=== PATIENT | male | born 1930 | race Caucasian/White ===

== ENCOUNTER 2018-08-01 17:54 | Emergency (ER) | payer OTHER, MEDICARE ==
[~2018-08-01 17:54] MED LIST: PERCOCET 5-3251 EACH PO
--- NOTE | 2018-08-01 20:05 | RADIOLOGY REPORT ---
EXAMINATION: XR HAND, LEFT CLINICAL INFORMATION: Laceration COMPARISON: None TECHNIQUE: PA, lateral, and oblique views of the left hand. FINDINGS: Gauze bandaging in circles the wrist. There are punctate radiodensities seen scattered within the mid hand along the palmar aspect and lateral aspect, lateral to the fifth metacarpal bone. There is also a larger hyperdensity seen along the lateral aspect of the distal radial diaphysis within the soft tissues at the volar side. This measures approximately 0.2 cm and is quite dense. Advanced degenerative changes are identified predominantly involving the first ray at the metacarpophalangeal joint, interphalangeal joint and carpometacarpal joint characterized by joint space narrowing and hypertrophic osteophyte arthropathy. Diffuse degenerative changes are seen throughout the interphalangeal joints of the fingers. No radiographic evidence of acute displaced fracture. IMPRESSION: Scattered punctate radiodensities are seen within the soft tissues of the hand at the level of the metacarpal bones, predominantly along the palmar aspect. There is an additional larger 0.2-0.3 cm radiodensity within the volar aspect of the forearm at the level of the distal radial diaphysis. Clinical correlation for foreign body is recommended. Radiographic evidence of acute displaced fracture. Degenerative changes of the hand as detailed above, predominantly involving the thumb. The report will be called to the ordering clinician by a [facility] Workflow Coordinator.
--- NOTE | 2018-08-01 21:49 | ED GENERAL ADULT ---
History of Present Illness General Chief Complaint: Laceration Procedure Stated Complaint: L HAND +LAC, NOT UTD ON TETANUS Source: patient Exam Limitations: no limitations Vital Signs & Intake/Output Vital Signs & Intake/Output Vital Signs Date Time Temp Pulse Resp B/P B/P Pulse O2 O2 Flow FiO2 Mean Ox Delivery Rate 08/01 2155 98.0 60 18 144/65 98 Room Air 08/01 1816 97 Room Air 08/01 1801 98.0 100 18 154/93 96 Room Air Room Air Allergies Coded Allergies: No Known Allergies (08/01/18) Reconcile Medications Oxycodone HCl/Acetaminophen (Percocet 5-325 MG Tablet) 5 MG-325 MG TABLET 1 TAB PO BID PRN PAIN DO NOT OPERATE MOTOR VEHICLES WITH THIS MEDICATION Triage Note: TRIAGE: 88 Y/O MALE PRESENTS C/O LAC TO LEFT DORSAL SURFACE OF HAND. REPORTS OCCURRED 1 HOUR PRIOR TO ARRIVAL. BLEEDING APPEARS MODERATELY CONTROLLED. DRESSING CHANGED IN TRIAGE. LAST TETANUS 10-15 YEARS AGO. Triage Nurses Notes Reviewed? yes Onset: Abrupt Duration: hour(s): Timing: single episode today HPI: 88-year-old male with a history of hyperlipidemia, renal stones, osteoporosis presenting with left hand laceration sustained approximately 1 hour prior to arrival. Patient reports that him and his are currently in the process of moving. He was moving some items with a hand truck when he accidentally cut himself on the hand truck. Denies numbness or paresthesias. Last tetanus 10-15 years ago. (Ursula Silva) Past History Travel History Traveled to [place] past 21 day No Medical History Any Pertinent Medical History? see below for history Neurological: NONE EENT: NONE Cardiovascular: hyperlipidemia Gastrointestinal: NONE Hepatic: NONE Renal: KIDNEY STONES Musculoskeletal: chronic back pain, osteoporosis Psychiatric: NONE Endocrine: NONE Blood Disorders: NONE Cancer(s): prostate cancer Tetanus Vaccine: 08/01/18 Surgical History Surgical History: non-contributory Psychosocial History What is your primary language Mexican Tobacco Use: Refused to answer ETOH Use: denies use Illicit Drug Use: denies illicit drug use Family History Hx Contributory? No (Ursula Silva) Review of Systems Review of Systems Constitutional: Reports: no symptoms. EENTM: Reports: no symptoms. Respiratory: Reports: no symptoms. Cardiovascular: Reports: no symptoms. GI: Reports: no symptoms. Genitourinary: Reports: no symptoms. Musculoskeletal: Reports: no symptoms. Skin: Reports: see HPI. Neurological/Psychological: Reports: no symptoms. Hematologic/Endocrine: Reports: no symptoms. Immunologic/Allergic: Reports: no symptoms. All Other Systems: Reviewed and Negative (Ursula Silva) Physical Exam Physical Exam General Appearance: well developed/nourished, no apparent distress, alert, awake Comments: Gen.: Well-nourished, well-developed, no acute distress. Head: Normocephalic, atraumatic. Eyes: Normal inspection bilaterally Ears: Normal inspection bilaterally Nose: Normal inspection Neck: Normal inspection Lungs: clear to auscultation bilaterally, normnal breath sounds Heart: regular rate and rhythm Abdomen: soft and non-tender HAND: Left hand Inspection: Approximately 2 inch curved laceration to the dorsum of the left hand Palpation: Tender palpation along the wound edges ROM: Unrestricted range of motion at all MCPs/PIPs/DIPs and IP joint Sensation: intact to median/radial/ulnar nerves Motor strength: 5/5 with digit flexion, extension, interosseous strength, and hand director dietetics department strength Cap refill: <2 seconds Pulse: 2+ radial pulse Neurologic: alert and oriented x3, steady gait Skin: warm and dry Psychiatric: Normal mood and affect, no apparent delusions or hallucinations, behavior appropriate Core Measures ACS in differential dx? No CVA/TIA Diagnosis: No Sepsis Present: No Sepsis Focused Exam Completed? No (Ursula Silva) Progress Differential Diagnoses I considered the following diagnoses in my evaluation of the patient: [ Laceration versus foreign body versus fracture, will concern for tendon injury versus nerve injury versus vascular injury] Plan of Care: XRFINDINGS: Gauze bandaging in circles the wrist. There are punctate radiodensities seen scattered within the mid hand along the palmar aspect and lateral aspect, lateral to the fifth metacarpal bone. There is also a larger hyperdensity seen along the lateral aspect of the distal radial diaphysis within the soft tissues at the volar side. This measures approximately 0.2 cm and is quite dense. Advanced degenerative changes are identified predominantly involving the first ray at the metacarpophalangeal joint, interphalangeal joint and carpometacarpal joint characterized by joint space narrowing and hypertrophic osteophyte arthropathy. Diffuse degenerative changes are seen throughout the interphalangeal joints of the fingers. No radiographic evidence of acute displaced fracture. IMPRESSION: Scattered punctate radiodensities are seen within the soft tissues of the hand at the level of the metacarpal bones, predominantly along the palmar aspect. There is an additional larger 0.2-0.3 cm radiodensity within the volar aspect of the forearm at the level of the distal radial diaphysis. Clinical correlation for foreign body is recommended. Radiographic evidence of acute displaced fracture. Degenerative changes of the hand as detailed above, predominantly involving the thumb. Clarified with [facility] that there is NO acute fracture. The wound was extensively irrigated to remove any microscopic foreign bodies, there were no visible foreign bodies. Wound repaired as described in the procedure note. Tetanus updated. Counseled on wound care and strict return precautions. Initial ED EKG: none (Ursula Silva) Departure Departure Disposition: HOME OR SELF CARE Condition: Stable Clinical Impression Primary Impression: Hand laceration Referrals: Nguyễn Marques MD (PCP/Family) Additional Instructions: Keep the wound clean and dry. Return to the emergency department on August 10 between 3pm-1am for suture removal. Return to the emergency department for any new or worsening symptoms. Follow-up with your primary care provider for reevaluation. Departure Forms: Customer Survey General Discharge Information (Ursula Silva) PA/VENEER GLUE JOINTER FEEDBACK Co-Sign Statement Statement: ED Attending supervision documentation- [] I saw and evaluated the patient. I have also reviewed all the pertinent lab results and diagnostic results. I agree with the findings and the plan of care as documented in the PA's/VENEER GLUE JOINTER FEEDBACK's documentation. [x] I have reviewed the ED Record and agree with the PA's/VENEER GLUE JOINTER FEEDBACK's documentation. [] Additions or exceptions (if any) to the PAs/VENEER GLUE JOINTER FEEDBACK's note and plan are summarized below: [] (Linda OWEN,Chase Roth) Procedures Laceration/Wound Repair Laceration/Wound Repair: Wound Location: upper extremity (left hand) Wound's Depth, Shape: other (curved) Wound Length (cm): 6 Wound Explored: clean, no foreign body removed Irrigated w/ Saline (ccs): 240 Betadine Prep? Yes Anesthesia: 1% lidocaine Wound Repaired With: sutures Suture Size/Type: 6:0, nylon, continuous running stitch with 1 simple interupted Date of Last Tetanus: 08/01/18 (Ursula Silva) Critical Care Note Critical Care Note Critical Care Time: non-applicable (Ursula Silva)
[2018-08-01 21:55] VITALS: BP 144/65
== END 2018-08-01 22:02 ==
LOC: ERH 17:54
DX: S61.412A Laceration without foreign body of left hand, initial encounter (principal); W45.8XXA Other foreign body or object entering through skin, initial encounter; Y93.E6 Activity, residential relocation
CPT/HCPCS: 73130-LT; 90471

== ENCOUNTER 2018-08-02 20:41 | Inpatient (IN) | payer OTHER, MEDICARE ==
[~2018-08-02] VITALS: Ht 162.6 cm; Wt 90.7 kg
[2018-08-02 21:46] LABS: ABSOLUTE BASOPHIL COUNT 0 /CUMM (0.0-0.2); ABSOLUTE EOSINOPHIL COUNT 0.1 /CUMM (0.0-0.7); ABSOLUTE GRANULOCYTE CT 11.1 /CUMM (1.4-6.5); ABSOLUTE LYMPH COUNT 0.9 /CUMM (1.2-3.4); ABSOLUTE MONOCYTE COUNT 0.8 /CUMM (0.10-0.60); BASOPHIL % 0.1 % (0.0-2.0); EOSINOPHIL % 0.9 % (0-5); HEMATOCRIT 34.1 % (42-52); MEAN CORPUSCULAR HGB 31.9 PG (27.0-31.0); MEAN CORPUSCULAR HGB CONC 34.4 G/DL (33.0-37.0); MEAN CORPUSCULAR VOLUME 92.6 FL (80.0-94.0); MEAN PLATELET VOLUME 8.8 FL (7.4-10.4); PLATELET COUNT 151 /CUMM (130-400); RBC DISTRIBUTION WIDTH 13.1 % (11.5-14.5); RED BLOOD CELL CT 3.68 /CUMM (4.70-6.10)
[2018-08-02 21:51] LABS: GRANULOCYTE % 85.8 % (42.2-75.2)
--- NOTE | 2018-08-02 23:42 | ED SKIN/ALLERGY COMPLAINT ---
History of Present Illness General Chief Complaint: Skin Rash/ Abcess Stated Complaint: SUTURES PLACED YESTERDAY, RED/SWELLING TODAY Source: patient Exam Limitations: no limitations Vital Signs & Intake/Output Vital Signs & Intake/Output Vital Signs Date Time Temp Pulse Resp B/P B/P Pulse O2 O2 Flow FiO2 Mean Ox Delivery Rate 08/03 0229 99.2 08/03 0114 99.3 08/03 0039 99.3 94 18 138/68 97 Room Air 08/02 2123 100.4 74 22 145/81 99 Room Air ED Intake and Output 08/03 0000 08/02 1200 Intake Total Output Total Balance Patient 200 lb Weight Allergies Coded Allergies: No Known Allergies (08/01/18) Triage Note: PER PT SUTURES PLACED IN ED LAST NIGHT TODAY FINGERS RED WARM AND SWOLLEN TEMP 100.4 IN ER Triage Nurses Notes Reviewed? yes Onset: Abrupt Duration: day(s): Timing: recent history Severity: moderate, severe Location: extremities HPI: 88-year-old male comes into the emergency room with redness and swelling to his left hand wrist. Associated fever chills body aches. He had a complex laceration done yesterday here in the emergency room. Symptoms got progressively worse today and he comes in for further evaluation. (Gentry HUERTA,Rico) Reconcile Medications Alendronate Sodium 70 MG TABLET 1 TAB PO QW OSTEOPOROSIS (Reported) in the morning, at least 30 minutes before the first food, beverage, or medication of the day Allopurinol 300 MG TABLET 1 TAB PO DAILY RENAL STONES (Reported) Bicalutamide 50 MG TABLET 1 TAB PO DAILY PROSTATE CANCER (Reported) Calcium Carbonate/Vitamin D3 (Caltrate 600 + D Tablet) 600 MG-800 TABLET 1 TAB PO BID VITAMIN (Reported) Furosemide (Lasix) 20 MG TABLET 1 TAB PO DAILY DIURETIC (Reported) Multivitamin (Daily Multiple Vitamin) 1 EACH TABLET 1 TAB PO DAILY VITAMIN SUPPLEMENT (Reported) Oxycodone HCl/Acetaminophen (Percocet 5-325 MG Tablet) 5 MG-325 MG TABLET 1 TAB PO BID PRN PAIN DO NOT OPERATE MOTOR VEHICLES WITH THIS MEDICATION Simvastatin (Simvastatin*) 20 MG TABLET 1 TAB PO QPM hld (Reported) (Mau OWEN,Giorgi Christensen) Past History Travel History Traveled to [place] past 21 day No Medical History Any Pertinent Medical History? see below for history Neurological: NONE EENT: NONE Cardiovascular: hyperlipidemia Gastrointestinal: NONE Hepatic: NONE Renal: KIDNEY STONES Musculoskeletal: chronic back pain, osteoporosis Psychiatric: NONE Endocrine: NONE Blood Disorders: NONE Cancer(s): prostate cancer Tetanus Vaccine: 08/01/18 Surgical History Surgical History: non-contributory Psychosocial History What is your primary language Cape Verdean Tobacco Use: Never used Family History Hx Contributory? No (Rico Burgos) Review of Systems Review of Systems Constitutional: Reports: no symptoms. EENTM: Reports: no symptoms. Respiratory: Reports: no symptoms. Cardiovascular: Reports: no symptoms. GI: Reports: no symptoms. Genitourinary: Reports: no symptoms. Musculoskeletal: Reports: no symptoms. Skin: Reports: see HPI. Neurological/Psychological: Reports: no symptoms. Hematologic/Endocrine: Reports: no symptoms. Immunologic/Allergic: Reports: no symptoms. All Other Systems: Reviewed and Negative (Rico Burgos) Physical Exam Physical Exam General Appearance: well developed/nourished, mild distress Head: atraumatic Eyes: Bilateral: normal appearance. Ears, Nose, Throat: normal ENT inspection, hearing grossly normal Neck: normal inspection Respiratory: no respiratory distress Back: normal inspection Extremities: normal inspection, normal range of motion, no edema Neurologic/Psych: awake, alert, oriented x 3, normal mood/affect Skin: intact Skin Problem Location: running stitch to left hand, erythema, warmth, soft tissue edema, no purulent drainage appreciated, radial pulse 2+, limited range of motion, (Rico Burgos) Progress Differential Diagnosis: abscess/cellulitis, allergic reaction Plan of Care: Orders Procedure Date/time Status Heart Healthy Diet 08/03 B Active CBC WITHOUT DIFFERENTIAL 08/03 06 Active BASIC ELECTROLYTES PLUS BUN&CR 08/03 0600 Active Saline Lock 08/03 0125 Active Pathway - chart 08/03 0125 Active House Staff 08/03 0125 Active Code Status 08/03 0125 Active Patient Data 08/03 0033 Active ED Holding Orders 08/03 0029 Active Admit to inpatient 08/03 0029 Active Vital Signs 08/03 0029 Active Code Status 08/03 0029 Complete VTE Mechanical Prophylaxis 08/03 UNK Active Vital Signs 08/03 UNK Active Heat/Cold Therapy 08/03 UNK Active Intake & Output 08/02 2343 Active LACTIC ACID 08/022 Complete BLOOD CULTURE 09/17 2127 Active COMPREHENSIVE METABOLIC PANEL 08/02 2127 Complete CBC WITHOUT DIFFERENTIAL 08/02 2127 Complete Current Medications Sig/Moreno Start time Last Medication Dose Stop Time Status Admin Polyethylene Glycol 17 GM AT BEDTIME 08/03 2100 AC (Miralax) Senna/Docusate Sodium 1 TAB AT BEDTIME 08/03 2100 AC (Senokot S) Atorvastatin Calcium 10 MG 1700 08/03 1700 AC (Lipitor) Allopurinol 300 MG DAILY 08/03 09 AC (Zyloprim) Furosemide 20 MG DAILY 08/03 09 AC (Lasix) Heparin Sodium 5,000 UNIT Q8 08/03 06 AC (Porcine) Vancomycin HCl 1,000 MG DAILY 08/03 215 UNir 08/03 Sodium Chloride 250 ML 0229 (Normal Saline 0.9%) Acetaminophen 650 MG Q6P PRN 08/03 130 AC (Tylenol) Acetaminophen 1,000 MG Q6P PRN 08/03 013 AC (Ofirmev) Hydromorphone HCl 0.5 MG Q6-PRN PRN 08/03 130 AC (Dilaudid) Laboratory Tests 08/03/18 0032: Lactic Acid Cancelled 08/02/182129: Lactic Acid 1.7 08/02/182129: Anion Gap 8, Estimated GFR > 60, BUN/Creatinine Ratio 25.0, Glucose 148 H, Calcium 9.5, Total Bilirubin 0.7, AST 25, ALT 31, Alkaline Phosphatase 90, Total Protein 7.1, Albumin 4.1, Globulin 3.0, Albumin/Globulin Ratio 1.4, CBC w Diff NO MAN DIFF REQ, RBC 3.68 L, MCV 92.6, MCH 31.9 H, MCHC 34.4, RDW 13.1, MPV 8.8, Gran % 85.8 H, Lymphocytes % 6.8 L, Monocytes % 6.4, Eosinophils % 0.9, Basophils % 0.1, Absolute Granulocytes 11.1 H, Absolute Lymphocytes 0.9 L, Absolute Monocytes 0.8 H, Absolute Eosinophils 0.1, Absolute Basophils 0 Microbiology 08/02 2130 BLOOD: Blood Culture - RECD (Rico Burgos) Departure Departure Disposition: STILL A PATIENT Condition: Stable Clinical Impression Primary Impression: Cellulitis of left hand Referrals: Nguyễn Marques MD (PCP/Family) Departure Forms: Customer Survey General Discharge Information Admission Note Spoke With: Laz Hoskins MD Documentation of Exam: Documentation of any treatments & extenuating circumstances including Concerns Regarding Discharge (functional status, medication knowledge or non-compliance, living conditions, etc.) that warrant an admission rather than observation: Patient will require IV antibiotics. Local wound care. Repeat labs. (Rico Burgos) PA/COLOR MIXER Co-Sign Statement Statement: ED Attending supervision documentation- [X] I saw and evaluated the patient. I have also reviewed all the pertinent lab results and diagnostic results. I agree with the findings and the plan of care as documented in the PA's/COLOR MIXER's documentation. [X] I have reviewed the ED Record and agree with the PA's/COLOR MIXER's documentation. [] Additions or exceptions (if any) to the PAs/COLOR MIXER's note and plan are summarized below: [ADMIT FOR IV ABX, IV FLUIDS, PAIN CONTROL] (Mau OWEN,Giorgi Christensen)
--- NOTE | 2018-08-03 00:34 | History & Physical ---
Esau Castillo 08/03/18 0033: General Information and HPI MD Statement: I have seen and personally examined NEERAJ CORTEZ V and documented this H &P. The patient is a 88 year old M who presented with a patient stated chief complaint of [infected cut]. Source of Information: patient, old records Exam Limitations: no limitations History of Present Illness: 88 year old male with PMH osteoporosis, prostate cancer s/p radical prostatectomy and radiation, was seen in [facility] for irrigation and suturing of laceration to L hand day prior to admission, returns with erythematous and swollen L hand. The patient had been working outside with a hand-truck while moving out of his house when he slipped and injured his hand on a metal pin on the hand truck. He had the wound irrigated, sutured and dressed in the ED and returned home not on antibiotics, but did receive a tetanus booster. He noticed the wound was increasingly warm overnight and into the next day, with associated swelling, and draining reddish fluid and he began to feel feverish with mild chills and decided to come to the hospital. He denied light-headedness, daiphoresis, chest pain, shortness of breath, nausea, vomiting/diarrhea. He is a former smoker, quit decades ago. Occasionally will drink a beer, denies illicit drug use. Allergies/Medications Allergies: Coded Allergies: No Known Allergies (08/01/18) Past History Travel History Traveled to [place] past 21 day No Medical History Neurological: NONE EENT: NONE Cardiovascular: hyperlipidemia Gastrointestinal: NONE Hepatic: NONE Renal: KIDNEY STONES Musculoskeletal: chronic back pain, osteoporosis Psychiatric: NONE Endocrine: NONE Blood Disorders: NONE Cancer(s): prostate cancer Tetanus Vaccine: 08/01/18 Surgical History Surgical History: non-contributory Review of Systems Review of Systems Constitutional: Denies: chills, fever, weakness. Cardiovascular: Reports: peripheral edema. Denies: chest pain, orthopena, palpitations. Respiratory: Denies: cough, short of breath, wheezing. GI: Denies: abdominal pain, diarrhea, nausea, vomiting. Musculoskeletal: Reports: gout, joint swelling. Exam & Diagnostic Data Last 24 Hrs of Vital Signs/I&O Vital Signs Date Time Temp Pulse Resp B/P B/P Pulse O2 O2 Flow FiO2 Mean Ox Delivery Rate 08/03 0229 99.2 09/18 0114 99.3 08/03 0039 99.3 94 18 138/68 97 Room Air 08/02 2123 100.4 74 22 145/81 99 Room Air Intake & Output 08/03 0800 08/03 0000 08/02 1600 Intake Total 100 Output Total Balance 100 Intake, IV 100 Patient 90.718 kg Weight Physical Exam General Appearance Alert, Oriented X3, Cooperative, No Acute Distress HEENT Atraumatic, PERRLA, EOMI Cardiovascular Regular Rate, Normal S1, Normal S2 Lungs Clear to Auscultation, Normal Air Movement Abdomen Normal Bowel Sounds, Soft, No Tenderness Neurological Normal Speech, Strength at 5/5 X4 Ext, Normal Tone, Sensation Intact (grossly), diminished sensation on the plantar surface of the second digit in each hand, Scrap Sorter strength slightly diminished in the left hand (due to pain/swelling), otherwise interosseous muscle strength intact 5/5 bilaterally Extremities Laceration beginning over the 3rd metacarpal extending to the 5th metacarpal on dorsal surface of hand. Blackened at the edges and draining sanguinous fluid, Dry ulcer at the distal tip on the 3rd digit of the right hand , the nail from the nail bed, Capillary refill <2 seconds in the left and right digits, Erythema and edema extending from the metacarpal-phalangeal joints to approximately 1/3 of the forearm past the wrist on the left upper extremity Last 24 Hrs of Labs/Dustin: Laboratory Tests 08/03/18 0032: Lactic Acid Cancelled 08/02/182129: Lactic Acid 1.7 08/02/182129: Anion Gap 8, Estimated GFR > 60, BUN/Creatinine Ratio 25.0, Glucose 148 H, Calcium 9.5, Total Bilirubin 0.7, AST 25, ALT 31, Alkaline Phosphatase 90, Total Protein 7.1, Albumin 4.1, Globulin 3.0, Albumin/Globulin Ratio 1.4, CBC w Diff NO MAN DIFF REQ, RBC 3.68 L, MCV 92.6, MCH 31.9 H, MCHC 34.4, RDW 13.1, MPV 8.8, Gran % 85.8 H, Lymphocytes % 6.8 L, Monocytes % 6.4, Eosinophils % 0.9, Basophils % 0.1, Absolute Granulocytes 11.1 H, Absolute Lymphocytes 0.9 L, Absolute Monocytes 0.8 H, Absolute Eosinophils 0.1, Absolute Basophils 0 Microbiology 09/17 2130 BLOOD: Blood Culture - RECD Assessment/Plan Assessment: 88 year old male seen in [facility] for irrigation and suturing of laceration to L hand the day prior to admission, returning with erythematous and swollen L hand, concerning for cellulitis extending from the wound. X-ray hand done day prior to admission showed: Scattered punctate radiodensities are seen within the soft tissues of the hand at the level of the metacarpal bones, predominantly along the palmar aspect. There is an additional larger 0.2-0.3 cm radiodensity within the volar aspect of the forearm at the level of the distal radial diaphysis. Clinical correlation for foreign body is recommended. Radiographic evidence of acute displaced fracture. Degenerative changes of the hand as detailed above, predominantly involving the thumb. Problems: 1. L Hand laceration 2. Cellulitis L hand Plan: -Admit the patient to general medicine -Consult hand surgery -Vancomycin 1000mg IV daily -Unasyn IV 3000mg -Continue home allopurinol -Continue home Lasix Full code ALPS and Heparin DVT ppx Heart healthy diet As Ranked By This Provider Problem List: 1. Hand laceration 2. Cellulitis of left hand Core Measures/Misc (08/02) Acute Coronary Syndrome ACS Diagnosis: No Congestive Heart Failure Congestive Heart Failure Diagnosis No Cerebrovascular Accident CVA/TIA Diagnosis: No VTE (View Protocol) VTE Risk Factors Age>40 No Mechanical VTE Prophylaxis d/t N/A MechProphylax Ordered No VTE Pharm Prophylaxis d/t NA PharmProphylax ordered Sepsis (View protocol) Sepsis Present: No If YES complete Sepsis Event Note If YES complete Sepsis Event Note Laz Hoskins 08/03/18 0242: General Information and HPI Allergies/Medications Home Med list Alendronate Sodium 70 MG TABLET 1 TAB PO QW OSTEOPOROSIS (Reported) in the morning, at least 30 minutes before the first food, beverage, or medication of the day Allopurinol 300 MG TABLET 1 TAB PO DAILY RENAL STONES (Reported) Bicalutamide 50 MG TABLET 1 TAB PO DAILY PROSTATE CANCER (Reported) Calcium Carbonate/Vitamin D3 (Caltrate 600 + D Tablet) 600 MG-800 TABLET 1 TAB PO BID VITAMIN (Reported) Furosemide (Lasix) 20 MG TABLET 1 TAB PO DAILY DIURETIC (Reported) Multivitamin (Daily Multiple Vitamin) 1 EACH TABLET 1 TAB PO DAILY VITAMIN SUPPLEMENT (Reported) Oxycodone HCl/Acetaminophen (Percocet 5-325 MG Tablet) 5 MG-325 MG TABLET 1 TAB PO BID PRN PAIN DO NOT OPERATE MOTOR VEHICLES WITH THIS MEDICATION Simvastatin (Simvastatin*) 20 MG TABLET 1 TAB PO QPM hld (Reported) Core Measures/Misc (08/02) Sepsis (View protocol) If YES complete Sepsis Event Note If YES complete Sepsis Event Note Attending MD Review Statement Attending Statement Attending MD Statement: examined this patient, discuss w/resident/PA/DUMP MOTORMAN, agreed w/resident/PA/DUMP MOTORMAN Attending Assessment/Plan: Addendum by . Patient was seen and examined at bedside today ( 08/03/18 ) at 1:15Am. Reviewed the history physical done by the resident. Reviewed the past medical family, family, social history. ROS: 10 point system reviewed and negative except as described above. Reviewed HPI, with the resident's physical examination. Labs reviewed. Assessment plan: #Infection of the left hand laceration wound along with cellulitis involving the left hand and forearm-patient has curved approximately 10 cm long approximately 1 cm deep laceration injury from fall. Has redness, serosanguineous discharge. Will continue with Unasyn, vancomycin. Follow-up the wound cultures. Patient received tetanus vaccine in the ER yesterday. Involved hand surgeon in the morning. So far no signs of any underlying abscess, or compartment syndrome or palmar fasciitis. Hand elevation is suggested. Continue the pain medications. #chronic lymphedema, chronic venous stasis changes in the leg left more than right, continue with the Lasix which is at home medication. #History of prostate cancer no acute issues, continue with bicalutamide. #Hyperlipidemia-continue with a statin. #Nephrolithiasis-continue with allopurinol, #steoporosis continue the home medications. Reviewed with the resident. Agree with the rest of the plan as per resident's note. Dr.Ravinder Mainor MD. Hospitalist. Pager: [phone], cell: [phone]. Jayden Banerjee MD 08/03/18 0330: Core Measures/Misc (08/02) Sepsis (View protocol) If YES complete Sepsis Event Note If YES complete Sepsis Event Note Resident Review Statement Resident Statement: examined this patient, discussed with international nurse, agreed with international nurse, amended to note Other Findings: Patient is a 88-year-old male with past medical history of hyperlipidemia, renal stones, chronic back pain, osteoporosis, prostate cancer status post prostatectomy and on bicalutamide, recently seen in the ED on 08/01 after having a mechanical fall and left hand laceration presenting this admission with chief complaint of left hand swelling and pain. Patient reports that one day prior he was outside in his yard and tripped and fell and cut himself on a metal concepcion. Patient presented to the ED and his hand was x-rayed which showed no acute fracture. Patient's wound was cleaned and sutured and he was given a tetanus shot. Patient reports that on the evening of admission he and his noticed that the hand was becoming much more swollen and red after changing the dressing. Patient also reports pain and decreased movement of his fingers. He reports fever, chills, and muscle aches. Patient in the ED received IV Unasyn 3 g 1. Sutures were removed in the ED. Physical exam and labs as above Patient is an 88-year-old male with past medical history significant for prostate cancer currently on chemotherapy presenting after a mechanical fall and laceration of the dorsum of his left hand with findings consistent for cellulitis with swelling, erythema, warmth, tenderness over the dorsum of his left hand. Plan: Admit to general med Continue IV antibiotics with IV Unasyn and IV vancomycin was added to cover for MRSA Consult hand surgery in a.m. Follow-up blood cultures Area of erythema was marked- continue to follow and tailor antibiotics based on response Continue home medications DVT prophylaxis: Alps, Lovenox Diet: Heart healthy Code: Full code
[2018-08-03] MEDS ORDERED: CALTRATE 600 +1 EACH PO (01:29)
[2018-08-03] MEDS ORDERED: DAILY MULTIPLE1 EACH PO (01:29)
[2018-08-03] MEDS ORDERED: SIMVASTATIN20 M2 PO (01:30)
[2018-08-03] MEDS ORDERED: LASIX20 M1 PO (01:31)
[2018-08-03] MEDS ORDERED: ALENDRONATE SOD70 M2 PO (01:31)
[2018-08-03] MEDS ORDERED: ALLOPURINOL300 M1 PO (01:31)
[2018-08-03] MEDS ORDERED: BICALUTAMIDE50 M1 PO (01:32)
[2018-08-03 06:28] LABS: ABSOLUTE BASOPHIL COUNT 0 /CUMM (0.0-0.2); ABSOLUTE EOSINOPHIL COUNT 0.1 /CUMM (0.0-0.7); ABSOLUTE GRANULOCYTE CT 10.7 /CUMM (1.4-6.5); ABSOLUTE LYMPH COUNT 1.3 /CUMM (1.2-3.4); ABSOLUTE MONOCYTE COUNT 1.1 /CUMM (0.10-0.60); BASOPHIL % 0.2 % (0.0-2.0); GRANULOCYTE % 80.5 % (42.2-75.2); HEMATOCRIT 30.3 % (42-52); MEAN CORPUSCULAR HGB 31.6 PG (27.0-31.0); MEAN CORPUSCULAR HGB CONC 34.5 G/DL (33.0-37.0); MEAN CORPUSCULAR VOLUME 91.8 FL (80.0-94.0); MEAN PLATELET VOLUME 9.3 FL (7.4-10.4); PLATELET COUNT 128 /CUMM (130-400); RBC DISTRIBUTION WIDTH 13.8 % (11.5-14.5); WHITE BLOOD CELL COUNT 13.3 /CUMM (4.8-10.8)
[2018-08-03 08:22] VITALS: BP 107/56
--- NOTE | 2018-08-03 11:54 | PN- Att Addend ---
Attending Addendum Attending Brief Note Patient seen and examined. Resting comfortably not in any acute distress. Very jovial gentleman. Reports mild pain in the left hand. On examination area of erythema extending down the hand appears to have improved. They significant swelling extending into the fingers of the hand. He has normal range of motion of the wrist on the fingers. No purulent discharge noted. Incidentally noted at the tip of the first right finger is what appears to be a necrotic area. 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 He reports that about 5-6 weeks ago he accidentally burned his finger. He did not seek medical attention regarding this. Denies any discharge from there. There is no erythema. There is no tenderness. The tip of the finger is dried and blackened. Will obtain x-ray to rule out underlying osteomyelitis. Recommend evaluation by the hand surgeon in addition to evaluation of his left hand cellulitis. Continue oin IV unasyn alone for now. No evidence of abscess collection.
--- NOTE | 2018-08-03 13:50 | RADIOLOGY REPORT ---
EXAMINATION: XR HAND, RIGHT CLINICAL INFORMATION: Necrotic index finger. COMPARISON: None TECHNIQUE: PA, lateral, and oblique views of the right hand. FINDINGS: No fracture is appreciated. There are degenerative changes throughout the hand, these are most pronounced with severe degenerative change at the 1st carpometacarpal joint with additional degenerative change with cartilage space loss and marginal osteophyte formation at the metacarpophalangeal and interphalangeal joint of the thumb. There is mild cartilage space narrowing at the PIP and DIP joints. No clear bony erosion or evidence of osteomyelitis. IMPRESSION: No fracture. Severe degenerative change at the 1st carpometacarpal joint. [id number] degenerative change in the remainder of the thumb and throughout the PIP and DIP joints.
[2018-08-03 14:23] VITALS: BP 110/70
--- NOTE | 2018-08-03 18:41 | Cons- Plastic Surgery ---
General Information and HPI Consulting Request Date of Consult: 08/03/18 Requested By: Rachel Roth MD Reason for Consult: cellulitis l hand following trauma Source of Information: patient Exam Limitations: no limitations History of Present Illness: At home injury to l hand against metal object, immediate pain, bleeding and open wound. Presented to ER and had suture repair. Noticed swelling and pain increase with redness approx day and a half later. Presented again to ER and admited with suture removal and ABX. No pain now. Allergies/Medications Allergies: Coded Allergies: No Known Allergies (08/01/18) Home Med List: Alendronate Sodium 70 MG TABLET 1 TAB PO QW OSTEOPOROSIS (Reported) in the morning, at least 30 minutes before the first food, beverage, or medication of the day Allopurinol 300 MG TABLET 1 TAB PO DAILY RENAL STONES (Reported) Bicalutamide 50 MG TABLET 1 TAB PO DAILY PROSTATE CANCER (Reported) Calcium Carbonate/Vitamin D3 (Caltrate 600 + D Tablet) 600 MG-800 TABLET 1 TAB PO BID VITAMIN (Reported) Furosemide (Lasix) 20 MG TABLET 1 TAB PO DAILY DIURETIC (Reported) Multivitamin (Daily Multiple Vitamin) 1 EACH TABLET 1 TAB PO DAILY VITAMIN SUPPLEMENT (Reported) Oxycodone HCl/Acetaminophen (Percocet 5-325 MG Tablet) 5 MG-325 MG TABLET 1 TAB PO BID PRN PAIN DO NOT OPERATE MOTOR VEHICLES WITH THIS MEDICATION Simvastatin (Simvastatin*) 20 MG TABLET 1 TAB PO QPM hld (Reported) Past History Medical History Neurological: NONE EENT: NONE Cardiovascular: hyperlipidemia Gastrointestinal: NONE Hepatic: NONE Renal: KIDNEY STONES Musculoskeletal: chronic back pain, osteoporosis Psychiatric: NONE Endocrine: NONE Blood Disorders: NONE Cancer(s): prostate cancer Surgical History Pertinent Surgical History: non-contributory Psychosocial History Where Do You Live? Home Smoking Status: Former Smoker Review of Systems Review of Systems: all other systems neg Exam & Diagnostic Data Vital Signs and I&O Vital Signs Date Time Temp Pulse Resp B/P B/P Pulse O2 O2 Flow FiO2 Mean Ox Delivery Rate 08/03 1423 98.2 60 20 110/70 98 Room Air 08/03 0822 98 Room Air 08/03 0822 98.4 62 18 107/56 98 Room Air 08/03 0734 97.6 58 17 111/55 97 Room Air 08/03 0603 98.7 67 18 119/73 97 Room Air 08/03 0229 99.2 08/03 0114 99.3 08/03 0039 99.3 94 18 138/68 97 Room Air 08/02 2123 100.4 74 22 145/81 99 Room Air Intake & Output 08/03 1600 08/03 0800 08/03 0000 08/02 1600 08/02 0800 08/02 0000 Intake Total 660 100 Output Total Balance 660 100 Intake, IV 100 Intake, Oral 660 Patient 200 lb 200 lb Weight Physical Exam: l hand with mild erythema and edema (resoving), ROM full, NVI. 4.5 cm laceration lateral mid dorsal hand with adherent distally based skin flap with mild overlying epidermal necrosis ongoing (non purulent). Assessment/Plan Assessment/Plan no functional loss, improving cellulitis. Wound care suggestions: daily soap and water, cover laceration with bacitracin and bandage QD. Follow up office next week. May use handly gently. Consult Acknowledgment - Thank you for your consult request.
[2018-08-03 22:14] VITALS: BP 134/68
[2018-08-04 06:42] VITALS: BP 126/70
--- NOTE | 2018-08-04 06:59 | PN- Housestaff ---
Kevin Dooley 08/04/18 0658: Subjective Follow-up For: Left Hand Cellulitis Subjective: Pt seen and examined at bedside this morning. Seen by plastic surgery last night. Patients hand wrapped as per hand surgery. On removal and assessment of hand, swelling and erythema significantly improved. Patients pain a 2/10. Afebrile overnight. Denies any fevers, chills, nausea, vomiting, diarrhea, urinary symptoms. Blood cultures have grown gram + cocci in clusters. Review of Systems Constitutional: Denies: see HPI. Objective Last 24 Hrs of Vital Signs/I&O Vital Signs Date Time Temp Pulse Resp B/P B/P Pulse O2 O2 Flow FiO2 Mean Ox Delivery Rate 08/04 0642 98.6 65 20 126/70 95 Room Air 08/03 2214 100.0 81 18 134/68 96 Room Air 08/03 1423 98.2 60 20 110/70 98 Room Air Intake & Output 08/04 1600 08/04 0800 08/04 0000 Intake Total 400 370 Output Total Balance 400 370 Intake, IV 200 120 Intake, Oral 200 250 Physical Exam General Appearance: Alert, Oriented X3, Cooperative, Mild Distress Skin: left hand laceration with mild erythema and swelling in the dorsal aspect , right hand index finger necrotic/dry skin at tip of finger Skin Temp/Moisture Exam: Warm/Dry HEENT: EOMI, Mucous Membr. moist/pink Neck: Supple Cardiovascular: Normal S1, Normal S2 Lungs: Clear to Auscultation Abdomen: Normal Bowel Sounds Neurological: Normal Speech, numbness/loss sensation to distal tips of fingers Extremities: No Edema Vascular: Normal Pulses Current Medications: Current Medications Sig/Moreno Start time Last Medication Dose Route Stop Time Status Admin Acetaminophen 650 MG Q6P PRN 08/03 0130 AC PO Acetaminophen 1,000 MG Q6P PRN 08/03 0130 AC IV Allopurinol 300 MG DAILY 08/03 09 AC 08/04 PO 1006 Ampicillin Sodium/ 1,500 MG Q6H 08/03 900 AC 08/04 Sulbactam Sodium IV 1006 Sodium Chloride 100 ML Atorvastatin Calcium 10 MG 1700 08/03 1700 AC 08/03 PO 1823 Furosemide 20 MG DAILY 08/03 09 AC 08/04 PO 1006 Heparin Sodium 5,000 UNIT Q8 08/03 06 AC 08/04 (Porcine) SC 0534 Hydromorphone HCl 0.5 MG Q6-PRN PRN 08/03 0130 AC IV Patient Medication 1 ED ONE ONE 08/04 1130 [facility] 08/04 1131 Polyethylene Glycol 17 GM AT BEDTIME 08/03 2100 AC 08/03 PO 213 Senna/Docusate Sodium 1 TAB AT BEDTIME 08/03 2100 AC 08/03 PO 213 Vancomycin HCl 1,000 MG DAILY 08/03 0215 DC 08/03 Sodium Chloride 250 ML IV 0229 Last 24 Hrs of Lab/Dustin Results Last 24 Hrs of Labs/Mics: Laboratory Tests 08/04/18917: CBC w Diff Pending, WBC Pending, RBC Pending, Hgb Pending, Hct Pending, MCV Pending, MCH Pending, MCHC Pending, RDW Pending, Plt Count Pending, MPV Pending, Gran % Pending, Lymphocytes % Pending, Monocytes % Pending, Eosinophils % Pending, Basophils % Pending, Absolute Granulocytes Pending, Absolute Lymphocytes Pending, Absolute Monocytes Pending, Absolute Eosinophils Pending, Absolute Basophils Pending Microbiology 08/03 1344 BODY FLUID: Body Fluid Culture - COLB 08/03 1344 BODY FLUID: Gram Stain - COLB Assessment/Plan Assessment: 88 year old male seen in [place] ED for irrigation and suturing of laceration to L hand the day prior to admission, returning with erythematous and swollen L hand, concerning for cellulitis extending from the wound. X-ray hand done day prior to admission showed: Scattered punctate radiodensities are seen within the soft tissues of the hand at the level of the metacarpal bones, predominantly along the palmar aspect. There is an additional larger 0.2-0.3 cm radiodensity within the volar aspect of the forearm at the level of the distal radial diaphysis. Clinical correlation for foreign body is recommended. Radiographic evidence of acute displaced fracture. Degenerative changes of the hand as detailed above, predominantly involving the thumb. Problems: 1. L Hand laceration 2. Cellulitis Left Hand 3. Right index finger chronic necrosis PLAN: * Discontinued Vancomycin; Patient on Day 2 Unasyn * Hand Surgery - Dr. Benedict - recommends bacitracin ointment, bandaging and close follow up out patient on discharge; no surgical intervention of right index finger that has stable necrosis with questionable etiology - stable hemoglobin A1C 5.6 - will recommend follow up with neuro for EMG given decreased sensation in median nerve distribution * Blood cultures: gram positive cocci in clusters - will follow up * Leukocytosis: resolved 9.2 from 13.3 and 13.0 * Continuing home medication Allopurinol, Lipitor 10mg and Lasix 20mg daily * Pain: Dilaudid 0.5 q6 IV PRNN, Tylenol IV/PO Code Status: Full Code Diet: Heart Healthy DVT PPx: ALPS, Heparin SC Problem List: 1. Hand laceration 2. Cellulitis of left hand Pain Ratin Pain Location: left dorsal aspect of hand Pain Goal: Remain pain free Pain Plan: as per pain pathway Tomorrow's Labs & Rationales: cbc bep Rachel Roth MD 08/04/18 1241: Attending MD Review Statement Attending Statement Attending MD Statement: examined this patient, discuss w/resident/PA/SHIP ERECTOR, agreed w/resident/PA/SHIP ERECTOR, reviewed EMR data (avail), discussed with nursing, amended to note Attending Assessment/Plan: Patient seen and examined. Resting comfortably not in any acute distress. No issues overnight reported by nursing staff. He is afebrile hemodynamically stable. Left hand has significantly improved compared to yesterday. Continues to have normal range of motion of the wrist and fingers. Denies pain. He was evaluated by the hand surgery service yesterday with recommendations to continue antibiotic therapy and outpatient follow-up. Laboratory data shows resolution of his leukocytosis on labs this morning. He could probably be transitioned to oral antibiotic therapy and discharge however blood cultures are currently growing gram-positive cocci. It is unclear if this represents true infection or contaminant. In view of this we will monitor the patient in the hospital. Will review complete results of blood culture and then make a determination whether patient should be treated simply for cellulitis of the hand or for bacteremia as well. Patient remains very jovial not in any acute distress and is in agreement with the plan. Imaging of the injured right first finger shows no evidence of bony involvement. He appears to have callused skin with no evidence of infection or necrosis. It is unclear why patient has such neuropathy. Hemoglobin A1c is no suggestive of underlying diabetes mellitus. Would recommend follow-up with a neurologist as an outpatient for possible EMG studies.
[2018-08-04 10:40] LABS: ABSOLUTE BASOPHIL COUNT 0 /CUMM (0.0-0.2); ABSOLUTE EOSINOPHIL COUNT 0.2 /CUMM (0.0-0.7); ABSOLUTE GRANULOCYTE CT 7.8 /CUMM (1.4-6.5); ABSOLUTE LYMPH COUNT 0.7 /CUMM (1.2-3.4); ABSOLUTE MONOCYTE COUNT 0.4 /CUMM (0.10-0.60); BASOPHIL % 0.1 % (0.0-2.0); EOSINOPHIL % 2.2 % (0-5); HEMATOCRIT 29.9 % (42-52); MEAN CORPUSCULAR HGB 31.9 PG (27.0-31.0); MEAN CORPUSCULAR HGB CONC 34.2 G/DL (33.0-37.0); MEAN CORPUSCULAR VOLUME 93.4 FL (80.0-94.0); MEAN PLATELET VOLUME 9.6 FL (7.4-10.4); PLATELET COUNT 125 /CUMM (130-400); RBC DISTRIBUTION WIDTH 13.4 % (11.5-14.5); WHITE BLOOD CELL COUNT 9.2 /CUMM (4.8-10.8)
[2018-08-04 11:35] LABS: GRANULOCYTE % 84.8 % (42.2-75.2)
--- NOTE | 2018-08-04 12:54 | Cons- Plastic Surgery ---
General Information and HPI Consulting Request Date of Consult: 08/04/18 Requested By: Rachel Roth MD Reason for Consult: right index finger necrosis Source of Information: patient Exam Limitations: no limitations History of Present Illness: pt noticed right index finger blister approx 3 weeks ago no history of trauma thinks he "burned it" due to presence of blister. Had similar episode months ago secondary to witnessed burn on insensate right index volar tip. Pt reports progressive loss of sensation in median nerve distributed fingers right hand. Has not sought treatment. Reports drainage from tip but decreased last few days. Allergies/Medications Allergies: Coded Allergies: No Known Allergies (08/01/18) Home Med List: Alendronate Sodium 70 MG TABLET 1 TAB PO QW OSTEOPOROSIS (Reported) in the morning, at least 30 minutes before the first food, beverage, or medication of the day Allopurinol 300 MG TABLET 1 TAB PO DAILY RENAL STONES (Reported) Bicalutamide 50 MG TABLET 1 TAB PO DAILY PROSTATE CANCER (Reported) Calcium Carbonate/Vitamin D3 (Caltrate 600 + D Tablet) 600 MG-800 TABLET 1 TAB PO BID VITAMIN (Reported) Furosemide (Lasix) 20 MG TABLET 1 TAB PO DAILY DIURETIC (Reported) Multivitamin (Daily Multiple Vitamin) 1 EACH TABLET 1 TAB PO DAILY VITAMIN SUPPLEMENT (Reported) Oxycodone HCl/Acetaminophen (Percocet 5-325 MG Tablet) 5 MG-325 MG TABLET 1 TAB PO BID PRN PAIN DO NOT OPERATE MOTOR VEHICLES WITH THIS MEDICATION Simvastatin (Simvastatin*) 20 MG TABLET 1 TAB PO QPM hld (Reported) Past History Medical History Neurological: NONE EENT: NONE Cardiovascular: hyperlipidemia Gastrointestinal: NONE Hepatic: NONE Renal: KIDNEY STONES Musculoskeletal: chronic back pain, osteoporosis Psychiatric: NONE Endocrine: NONE Blood Disorders: NONE Cancer(s): prostate cancer Surgical History Pertinent Surgical History: non-contributory Psychosocial History Where Do You Live? Home Smoking Status: Former Smoker Review of Systems Review of Systems: al other systems neg, left hand continues to improve Exam & Diagnostic Data Vital Signs and I&O Vital Signs Date Time Temp Pulse Resp B/P B/P Pulse O2 O2 Flow FiO2 Mean Ox Delivery Rate 08/04 0642 98.6 65 20 126/70 95 Room Air 08/03 2214 100.0 81 18 134/68 96 Room Air 08/03 1423 98.2 60 20 110/70 98 Room Air Intake & Output 08/04 1600 08/04 0800 08/04 0000 08/03 1600 08/03 0800 08/03 0000 Intake Total 400 370 660 100 Output Total Balance 400 370 660 100 Intake, IV 200 120 100 Intake, Oral 200 250 660 Patient 200 lb 200 lb Weight Physical Exam: right IF tip with dry necrosis no active drainage, decreased gross sensability median distribution right hand digits, no cellulitis. Chronic loss of full extension all digit.Left hand edema and erythema decreasing/improving. Assessment/Plan Assessment/Plan Improving left hand, cont same. Right index finger with stable necrosis ? etiology. No treatment required at this time as tissue evolves, xray neg for osteo. Consult Acknowledgment - Thank you for your consult request.
[2018-08-04 14:44] VITALS: BP 130/72
--- NOTE | 2018-08-04 15:12 | Patient Discharge Instructions ---
Discharge Instructions General Discharge Information You were seen/treated for: Left Hand Laceration/Cellulitis Right Hand Index Finger Chronic/Stable Necrosis Special Instructions: Please follow up with Dr. Benedict of Hand Surgery within 1 week of discharge for further monitoring/treatment of left hand cellulitis/laceration. Please follow up with your PCP within 1-2 weeks of discharge. Return if worsening pain, swelling, discharge, fevers, chills, nausea or vomiting. Please change dressing daily and apply bacitracin Acute Coronary Syndrome Inclusion Criteria At DC or during hospital stay patient has or had the following: ACS DIAGNOSIS No Discharge Core Measures Meds if any: Prescribed or Continued at Discharge Meds if any: NOT Prescribed or Continued at Discharge Congestive Heart Failure Inclusion Criteria At DC or during hospital stay patient has or had the following: CHF DIAGNOSIS No Discharge Core Measures Meds if any: Prescribed or Continued at Discharge Meds if any: NOT Prescribed or Continued at Discharge Cerebrovascular accident Inclusion Criteria At DC or during hospital stay patient has or had the following: CVA/TIA Diagnosis No Discharge Core Measures Meds if any: Prescribed or Continued at Discharge Meds if any: NOT Prescribed or Continued at Discharge Venous thromboembolism Inclusion Criteria VTE Diagnosis No VTE Type NONE VTE Confirmed by (Test) NONE Discharge Core Measures - Per Current guidelines, there needs to be overlap - treatment for the first 5 days of Warfarin therapy. - If discharged on Warfarin prior to 5 days of - overlap therapy, the patient will need to be - assessed for post discharge needs including - *Post discharge parental anticoagulation - *Warfarin and/or parental anticoagulation education - *Follow up date to check INR post discharge At least 5 days overlap therapy as Inpatient No Meds if any: Prescribed or Continued at Discharge Note: Overlap Therapy is Warfarin and Anticoagulant Meds if any: NOT Prescribed or Continued at Discharge
--- NOTE | 2018-08-04 15:14 | Discharge Summary ---
Hospital Course Allergies: Coded Allergies: No Known Allergies (08/01/18) Discharge Instructions Medications at Discharge Discharge Medications: Stop taking the following medications: Oxycodone HCl/Acetaminophen (Percocet 5-325 MG Tablet) 5 MG-325 MG TABLET ORAL TWICE DAILY as needed for PAIN Qty = 12 Continue taking these medications: Calcium Carbonate/Vitamin D3 (Caltrate 600 + D Tablet) 600 MG-800 TABLET 1 Tablet ORAL TWICE DAILY Multivitamin (Daily Multiple Vitamin) 1 EACH TABLET 1 Tablet ORAL DAILY Simvastatin (Simvastatin*) 20 MG TABLET 1 Tablet ORAL Every night Allopurinol (Allopurinol) 300 MG TABLET 1 Tablet ORAL DAILY Furosemide (Lasix) 20 MG TABLET 1 Tablet ORAL DAILY Alendronate Sodium (Alendronate Sodium) 70 MG TABLET 1 Tablet ORAL Once a Week Instructions: in the morning, at least 30 minutes before the first food, beverage, or medication of the day Bicalutamide (Bicalutamide) 50 MG TABLET 1 Tablet ORAL DAILY
[2018-08-04 22:37] VITALS: BP 120/70
[2018-08-05 06:10] VITALS: BP 108/64
--- NOTE | 2018-08-05 07:01 | PN- Housestaff ---
Kevin Dooley 08/05/18 0701: Subjective Follow-up For: Left Hand Cellulitis Subjective: Pt seen adilson examined at bedside this mrjames. He is on Day 3 IV Unasyn. Afebrile overnight with no leukocytosis. Patient denies any fevers, chills, nausea, vomiting or diarrhea. He has pain 2/10 in the left upper extremity. Blood cultures growing staph couagulase negative. Patient will be discharged on proper course of Augmentin at home. Advised to dress left hand with bacitracin ointment. Review of Systems Constitutional: Denies: see HPI. Objective Last 24 Hrs of Vital Signs/I&O Vital Signs Date Time Temp Pulse Resp B/P B/P Pulse O2 O2 Flow FiO2 Mean Ox Delivery Rate 08/05 0610 98.4 72 20 108/64 94 Room Air 08/04 2237 98.4 68 20 120/70 98 Room Air 08/04 1444 98.9 75 20 130/72 97 Room Air Intake & Output 08/05 1600 08/05 0800 08/05 0000 Intake Total 250 2529 Output Total Balance 250 2529 Intake, IV 250 125 Intake, Oral 2404 Physical Exam General Appearance: Alert, Oriented X3, Cooperative Skin: Left hand erythema, laceration, swelling Skin Temp/Moisture Exam: Warm/Dry HEENT: Mucous Membr. moist/pink Neck: Supple Cardiovascular: Normal S1, Normal S2 Lungs: Clear to Auscultation, Normal Air Movement Abdomen: Normal Bowel Sounds, Soft, No Tenderness Neurological: Strength at 5/5 X4 Ext Extremities: No Edema Vascular: Normal Pulses Current Medications: Current Medications Sig/Moreno Start time Last Medication Dose Route Stop Time Status Admin Acetaminophen 650 MG Q6P PRN 08/03 0130 AC PO Acetaminophen 1,000 MG Q6P PRN 08/03 0130 AC IV Allopurinol 300 MG DAILY 08/03 900 AC 08/05 PO 09 Ampicillin Sodium/ 1,500 MG Q6H 08/03 900 AC 08/05 Sulbactam Sodium IV 09 Sodium Chloride 100 ML Atorvastatin Calcium 10 MG 1700 08/03 1700 AC 08/04 PO 1732 Furosemide 20 MG DAILY 08/03 900 AC 08/05 PO 09 Heparin Sodium 5,000 UNIT Q8 08/03 06 AC 08/05 (Porcine) SC 0624 Hydromorphone HCl 0.5 MG Q6-PRN PRN 08/03 0130 AC IV Polyethylene Glycol 17 GM AT BEDTIME 08/03 2100 AC 08/04 PO 2104 Senna/Docusate Sodium 1 TAB AT BEDTIME 08/03 2100 AC 08/04 PO 2104 Last 24 Hrs of Lab/Dustin Results Last 24 Hrs of Labs/Mics: Laboratory Tests 08/05/18 0808: CBC w Diff NO MAN DIFF REQ, RBC 3.47 L, MCV 92.7, MCH 31.7 H, MCHC 34.2, RDW 13.5, MPV 9.6, Gran % 74.3, Lymphocytes % 15.4 L, Monocytes % 6.3, Eosinophils % 3.5, Basophils % 0.5, Absolute Granulocytes 6.3, Absolute Lymphocytes 1.3, Absolute Monocytes 0.5, Absolute Eosinophils 0.3, Absolute Basophils 0 Assessment/Plan Assessment: 88 year old male seen in [place] ED for irrigation and suturing of laceration to L hand the day prior to admission, returning with erythematous and swollen L hand, concerning for cellulitis extending from the wound. 08/05: Stable for discharge today. Discharge on Augmentin for total 10 day course. Received 3 days IV Unasyn. Bacitracin ointment for discharge as well. Outpatient follow up with Hand surgeon. Problems: 1. L Hand laceration 2. Cellulitis Left Hand 3. Right index finger chronic necrosis PLAN: * Day 3 Unasyn today; will discharge on total 10 day course: oral Augmentin * Hand Surgery - Dr. Benedict - recommends bacitracin ointment, bandaging and close follow up out patient on discharge; no surgical intervention of right index finger that has stable necrosis with questionable etiology * Blood cultures: Staph coagulase negative * Leukocytosis: resolved 8.5 from 9.2 from 13.3 and 13.0 * Continuing home medication Allopurinol, Lipitor 10mg and Lasix 20mg daily * Pain: Dilaudid 0.5 q6 IV PRNN, Tylenol IV/PO Code Status: Full Code Diet: Heart Healthy DVT PPx: ALPS, Heparin SC Problem List: 1. Hand laceration 2. Cellulitis of left hand Pain Ratin Pain Location: left hand cellulitis Pain Goal: Remain pain free Pain Plan: as per pain pathway Tomorrow's Labs & Rationales: discharge today Arole MDRachel 08/05/18 1149: Attending MD Review Statement Attending Statement Attending MD Statement: examined this patient, discuss w/resident/PA/TRUCK SPOTTER, agreed w/resident/PA/TRUCK SPOTTER, reviewed EMR data (avail), discussed with nursing, discussed with case mgmt, amended to note Attending Assessment/Plan: Patient seen and examined. Resting comfortably not in any acute distress. No issues overnight. Denies any pain this morning. He remains afebrile hemodynamically stable. We did speak with the lab today on blood cultures are growing staph epididymis. This is most likely contamination. He does not appear septic. On examination today the edema of the hand has improved significantly as well as erythema. The wound site looks clean with no purulent drainage. He is medically stable to be discharged home today and has been provided with wound care instructions which his and expressed will perform for him at home. He will follow-up with the hand surgeon as an outpatient. Hand surgery service also evaluated the right first finger. The impression is that it is stable necrosis. No evidence of osteomyelitis on imaging. They will follow-up in the outpatient.
[2018-08-05 09:18] LABS: ABSOLUTE BASOPHIL COUNT 0 /CUMM (0.0-0.2); ABSOLUTE EOSINOPHIL COUNT 0.3 /CUMM (0.0-0.7); ABSOLUTE GRANULOCYTE CT 6.3 /CUMM (1.4-6.5); ABSOLUTE LYMPH COUNT 1.3 /CUMM (1.2-3.4); ABSOLUTE MONOCYTE COUNT 0.5 /CUMM (0.10-0.60); BASOPHIL % 0.5 % (0.0-2.0); EOSINOPHIL % 3.5 % (0-5); GRANULOCYTE % 74.3 % (42.2-75.2); HEMATOCRIT 32.2 % (42-52); MEAN CORPUSCULAR HGB 31.7 PG (27.0-31.0); MEAN CORPUSCULAR HGB CONC 34.2 G/DL (33.0-37.0); MEAN CORPUSCULAR VOLUME 92.7 FL (80.0-94.0); MEAN PLATELET VOLUME 9.6 FL (7.4-10.4); PLATELET COUNT 149 /CUMM (130-400); RBC DISTRIBUTION WIDTH 13.5 % (11.5-14.5); RED BLOOD CELL CT 3.47 /CUMM (4.70-6.10); WHITE BLOOD CELL COUNT 8.5 /CUMM (4.8-10.8)
[2018-08-05] MEDS ORDERED: AUGMENTIN 875-1 EACH PO ×2 (09:37→09:52)
[2018-08-05] MEDS ORDERED: BACITRACIN28.4 GM TOP ×2 (09:52→09:53)
== END 2018-08-05 12:50 | DRG 603 ==
LOC: ERH 20:41 → ERHI 08-03 00:29 → 2NA 08-03 00:29 → ERHI 08-03 07:48 → ENRESERV 08-03 11:18 → ENTRNSPT 08-03 12:36 → EDTRNSPT 08-03 12:41 → EDTRNSPTSTS 08-03 12:41 → 2NA 08-03 12:57 → CMPTRNSPT 08-03 13:03 → ENTRNSPT 08-05 12:39 → 2NA 08-05 12:50 → EDTRNSPTSTS 08-05 12:57 → EDTRNSPT 08-05 12:57 → CMPTRNSPT 08-05 13:08
PROVIDERS: Emergency Medicine; Physical Medicine & Rehabilitation Pain Medicine; Student in an Organized Health Care Education/Training Program
DX: L03.114 Cellulitis of left upper limb (principal); M81.0 Age-related osteoporosis without current pathological fracture; E78.5 Hyperlipidemia, unspecified; Z85.46 Personal history of malignant neoplasm of prostate; Z92.3 Personal history of irradiation; M54.89 Other dorsalgia; S61.422D Laceration with foreign body of left hand, subsequent encounter; Z87.891 Personal history of nicotine dependence; T23.021A Burn of unspecified degree of single right finger (nail) except thumb, initial encounter; B95.7 Other staphylococcus as the cause of diseases classified elsewhere
CPT/HCPCS: 2NASP; 87075; 36415; 36592; 73120-RT; 73130-LT; 82436; 87040; 87147; 96374; 96375; J0131; J1644; J3370; J7040